=== PATIENT | male | born 1970 | race Two or more races ===

== ENCOUNTER → 2024-12-10 | Outpatient (CLI) | payer BC, SELFPAY ==
--- NOTE | 2024-12-10 | XR_ITS ---
EXAM: Single contrast upper GI exam INDICATION: Heartburn DATE: 12/10/2024, 11:16 a.m. Fluoroscopy time: 2.3 minutes Dose: 244.99 mGy PROCEDURE: Single contrast barium esophagram performed in multiple positions and multiple projections. Liquid barium contrast passes normally from the oropharynx through the esophagus into the stomach and duodenum without evidence of delay. . No evidence of esophageal, gastric or duodenal mass, stricture, filling defect or diverticulum. No evidence of hiatal hernia or gastroesophageal reflux demonstrated during the exam. IMPRESSION: Negative single contrast barium upper GI exam.
--- NOTE | 2024-12-10 08:57 | XR_ITS ---
Examination: Abdomen sonogram, Limited Date and time of exam: December 10, 2024, 0858 hours INDICATIONS: Palpable umbilical hernia defect bulging noticed beginning several months ago Technique: Real-time traore scale transabdominal sonographic images of the upper abdomen obtained. Findings: Hernia defect containing bowel at the area of concern, a 3.1 x 1.0 x 2.7 cm IMPRESSION: Umbilical hernia defect containing bowel as above CT abdomen pelvis without contrast follow-up would best assess for incarcerated bowel in the hernia defect as clinically warranted
[2024-12-10 09:47] LABS: Misc Send Out* See Sep Rpt; Quantiferon-TB* See Sep Rpt
[2024-12-10 10:12] LABS: Basophils # (Auto) 0.0 Thou/mm3 (0.0-0.2); Basophils % (Auto) 0 % (0-2.5); Eosinophils # (Auto) 0.1 Thou/mm3 (0.0-0.5); Eosinophils % (Auto) 2 % (0-10); Hematocrit 44.8 % (41.0-53.0); Hemoglobin 15.7 g/dL (13.5-16.0); Immature Granulocytes Auto 0.01 Thou/mm3 (0.00-0.00); Lymphocytes # (Auto) 1.5 Thou/mm3 (1.0-4.8); Lymphocytes % (Auto) 26 % (10-50); Mean Corpuscular HGB Conc 35.0 g/dl (31.0-37.0); Mean Corpuscular Hemoglobin 30.8 pg (25.0-35.0); Mean Corpuscular Volume 88 fL (80-100); Monocytes # (Auto) 0.4 Thou/mm3 (0.0-0.8); Monocytes % (Auto) 7 % (0-12); Neutrophils # (Auto) 3.8 Thou/mm3 (1.8-7.7); Neutrophils % (Auto) 65 % (37-80); Nucleated Red Blood Cell # 0.00 Thou/mm3 (0.00-0.00); Nucleated Red Blood Cell % 0 /100 WBC (0); Platelet Count 209 Thou/mm3 (140-440); RDW Standard Deviation 42.4 fL (35.1-43.9); Red Blood Count 5.09 Miln/mm3 (4.50-5.90); White Blood Count 5.9 Thou/mm3 (3.8-10.6)
[2024-12-10 10:21] LABS: Glucose Estimated Average 120 mg/dL (80-131); Hemoglobin A1C 5.8 % Hgb (4.8-6.0)
[2024-12-10 10:24] LABS: Creatinine MALB Rnd Ur 133 mg/dL (30-125); Microalbumin Creat Ratio 8 mg/gCrea (<30); Microalbumin, Random Urine 11 mg/L (0-300)
[2024-12-10 10:35] LABS: Sed Rate (ESR) 11 mm/hr (0-20)
[2024-12-10 10:41] LABS: Ferritin 112 ng/mL (10.5-307.3); Iron 111 mcg/dL (65-175); Percent Iron Saturation 32 % (20-55); Total Iron Binding Capacity 344 mcg/dL (250-425); Unsaturated Iron Binding 233 (225-295)
[2024-12-10 10:42] LABS: Folate 18.94 ng/mL (>5.38); Vitamin B12 275 pg/mL (211-911); Vitamin D 25 Hydroxy Total 14.8 ng/mL (7.3-40.2)
[2024-12-10 10:44] LABS: Alanine Aminotransferase 30 U/L (10-49); Albumin, Serum 5.0 gm/dL (3.5-5.0); Albumin/Globulin Ratio 1.9 (1.2-2.2); Alkaline Phosphatase 99 U/L (46-116); Anion Gap 10 (7-16); Aspartate Amino Transferase 26 U/L (0-34); BUN/Creatinine Ratio 11 Ratio (12-20); Bilirubin,Total 0.5 mg/dL (0.3-1.2); Blood Urea Nitrogen 10 mg/dL (9-23); Calcium 9.3 mg/dL (8.3-10.6); Calcium (Corrected) 9.3 mg/dL (8.5-10.1); Carbon Dioxide 27.0 mMol/L (20.0-31.0); Cardiac Risk Estimate 5.0 RATIO (4.0-6.7); Chloride 104 mMol/L (98-107); Cholesterol 180 mg/dL (132-200); Creatinine (Component) 0.9 mg/dL (0.6-1.3); Free T4 (Free Thyroxine) 0.90 ng/dL (0.89-1.76); Globulin 2.6 gm/dL (2.3-3.5); Glucose 99 mg/dL (74-106); HDL Cholesterol 36 mg/dL (40-60); LDL Cholesterol,Calculated 93 mg/dL (0-130); Magnesium 2.1 mg/dL (1.6-2.6); Osmolality,Calculated 280 (275-295); Potassium 4.2 mMol/L (3.4-5.1); Sodium 141 mMol/L (136-145); Thyroid Stimulating Hormone 2.93 uIU/mL (0.55-4.78); Total Protein 7.6 gm/dL (5.7-8.2); Triglycerides 257 mg/dL (30-150); eGFR > 60 See Note
[2024-12-10 10:55] LABS: Urea Breath Test Positive (Negative)
[2024-12-10 10:55] LABS: Syphilis Nonreactive (Nonreactive)
[2024-12-19 23:35] LABS: HCV RNA, PCR <15 NOT DETECTED IU/mL; Hepatitis B Virus DNA* NOT DETECTED; PSA, Free 0.30 ng/mL; PSA, Total 1.5 ng/mL (< OR = 4.0)
[2024-12-22 07:01] LABS: HCV RNA, PCR Log IU <1.18 NOT DETECTED Log IU/mL; Hepatitis B DNA PCR NOT DETECTED Log IU/mL; Thyroid Peroxidase Antibodies* <1 IU/mL (<9)
[2024-12-22 07:02] LABS: HIV Ag/Ab, 4th Gen NON-REACTIVE
== END | disposition home or self-care (01) ==
LOC: CDIM 08:39 → COPL 09:15
PROVIDERS: Referring Provider Registered Nurse Community Health; Visit Provider Registered Nurse Community Health
DX: K42.9 Umbilical hernia without obstruction or gangrene (principal); R10.9 Unspecified abdominal pain; K21.9 Gastro-esophageal reflux disease without esophagitis; Z01.84 Encounter for antibody response examination; R03.0 Elevated blood-pressure reading, without diagnosis of hypertension; E66.9 Obesity, unspecified; Z68.33 Body mass index [BMI] 33.0-33.9, adult; Z11.3 Encounter for screening for infections with a predominantly sexual mode of transmission; Z11.59 Encounter for screening for other viral diseases; Z11.1 Encounter for screening for respiratory tuberculosis; Z83.3 Family history of diabetes mellitus; Z82.49 Family history of ischemic heart disease and other diseases of the circulatory system
CPT/HCPCS: 36415; 74240; 76705; 80053; 80061; 82043; 82306; 82570; 82607; 82728; 82746; 83013; 83014; 83036; 83540; 83550; 83735; 84153; 84154; 84439; 84443; 85025; 85652; 86376; 86480; 86735; 86762; 86765; 86780; 87086; 87389; 87517; 87522; A4649

== ENCOUNTER → 2024-12-12 | Outpatient (CLI) | payer BC, SELFPAY ==
[2024-12-12 16:07] LABS: OBS Performed By LAB; OBS QC OK? Yes
[2024-12-12 17:40] LABS: Occult Blood, Stool Negative (Negative); Occult Blood, Stool #2 Negative (Negative); Occult Blood, Stool #3 Negative (Negative)
[2024-12-12 17:41] LABS: OBS Developer Expiration Date 2-28-27; OBS Developer Lot # 4-24-551749
== END | disposition home or self-care (01) ==
LOC: SLDO 15:52
PROVIDERS: PCP Registered Nurse Community Health; Referring Provider Registered Nurse Community Health; Visit Provider Registered Nurse Community Health
DX: Z12.11 Encounter for screening for malignant neoplasm of colon (principal)
CPT/HCPCS: 82270

== ENCOUNTER → 2024-12-19 | Outpatient (CLI) | payer BC, SELFPAY ==
[2024-12-25 22:06] LABS: PSA, Free 0.31 ng/mL; PSA, Total 1.2 ng/mL (< OR = 4.0)
== END | disposition home or self-care (01) ==
PROVIDERS: PCP Registered Nurse Community Health; Referring Provider Registered Nurse Community Health; Visit Provider Registered Nurse Community Health
DX: Z12.5 Encounter for screening for malignant neoplasm of prostate (principal)
CPT/HCPCS: 36415; 84153; 84154